=== PATIENT | male | born 1965 | race Caucasian/White ===

== ENCOUNTER 2023-11-22 00:02 | Inpatient (IN) | payer BC, MEDICAID, SELFPAY ==
[2023-11-22] VITALS (14 sets, daily range): BP systolic 94–130; BP diastolic 44–79; PULSE 81–99; RESP 12–18; TEMP 36.5–37.2; O2SAT 94–99; BMI 34.9
[2023-11-22] MEDS: sodium chloride 0.9% 1,000 ML 999 ML IV (00:15)
[2023-11-22 00:25] LABS: Basophils # 0.1 10^3/uL (0.0-0.1); Basophils % 0.4 %; Eosinophils # 0.1 10^3/uL (0.0-0.8); Eosinophils % 0.6 %; Hematocrit 33.3 % (37-53); Lymphocytes # 2.2 10^3/uL (0.8-4.8); Lymphocytes % 19.7 %; Mean Corpuscular HGB Conc 30.9 g/dL (30-55); Mean Corpuscular Hemoglobin 28.5 pg (27-33); Mean Corpuscular Volume 92.2 fl (82-101); Mean Platelet Volume 10.6 fL (7.4-10.4); Monocytes # 0.7 10^3/uL (0.2-0.9); Monocytes % 6.1 %; Neutrophils # 8.18 10^3/uL (1.8-7.7); Neutrophils % 72.8 %; Nucleated Red Blood Cells % 0 %; Platelet Count 181 10^3/cmm (157-399); Red Blood Count 3.61 10^6/uL (3.85-5.65); Red Cell Distribution Width 12.9 % (12.1-15.1); White Blood Count 11.23 10^3/uL (3.29-11.43)
[2023-11-22 00:36] LABS: INR 1.08 (0.8-1.2)
[2023-11-22 00:37] LABS: Partial Thromboplastin Time 19.1 SECONDS (23.9-36.7)
--- NOTE | 2023-11-22 00:38 | CTR_ITS ---
PROCEDURE INFORMATION: Exam: CTA Chest With Contrast Exam date and time: 11/22/2023 12:41 AM Age: 58 years old Clinical indication: Nausea and vomiting; Abdominal pain; Generalized; Shortness of breath; Other: N/a; Prior surgery; Surgery date: 6+ months; Surgery type: Appy; Patient HX: SOB with tachycardia. Abd pain with coffee ground emesis and tarry stool. ; Additional info: Chest discomfort, tachycardia, black stool TECHNIQUE: Imaging protocol: Computed tomographic angiography of the chest with contrast. Exam focused on the arteries. 3D rendering (Not supervised by radiologist): MIP and/or 3D reconstructed images were created by the technologist. Radiation optimization: All CT scans at this facility use at least one of these dose optimization techniques: automated exposure control; mA and/or kV adjustment per patient size (includes targeted exams where dose is matched to clinical indication); or iterative reconstruction. Contrast material: OMNI 350; Contrast volume: 162 ml; Contrast route: INTRAVENOUS (IV); COMPARISON: No relevant prior studies available. RADIATION DOSE METRICS: Total DLP (mGy-cm): 1948.42 FINDINGS: Pulmonary arteries: No filling defects in the pulmonary arteries to suggest pulmonary emboli. Aorta: There is ectasia (mild dilatation) of the ascending thoracic aorta, measuring 4 cm in transaxial diameter at the level of the pulmonary artery. Lungs: No consolidation. There is a single pleural based 2.1 x 1 cm pneumatocele in the left lower lobe. Pleural spaces: No pleural effusion or pneumothorax.. Heart: The heart is normal in size. There are no pericardial fluid collections. Lymph nodes: No enlarged mediastinal or hilar lymph nodes are seen. Bones/joints: No acute fracture.There is segmental ossification of the anterior longitudinal ligament consistent with benign diffuse idiopathic skeletal hyperostosis (DISH). Soft tissues: Unremarkable. PROCEDURE INFORMATION: Exam: CT Abdomen And Pelvis With Contrast Exam date and time: 11/22/2023 12:41 AM Age: 58 years old Clinical indication: Nausea and vomiting; Abdominal pain; Generalized; Shortness of breath; Other: N/a; Prior surgery; Surgery date: 6+ months; Surgery type: Appy; Patient HX: SOB with tachycardia. Abd pain with coffee ground emesis and tarry stool. ; Additional info: Chest discomfort, tachycardia, black stool TECHNIQUE: Imaging protocol: Computed tomography of the abdomen and pelvis with contrast. Radiation optimization: All CT scans at this facility use at least one of these dose optimization techniques: automated exposure control; mA and/or kV adjustment per patient size (includes targeted exams where dose is matched to clinical indication); or iterative reconstruction. Contrast material: OMNI 350; Contrast volume: 162 ml; Contrast route: INTRAVENOUS (IV); COMPARISON: No relevant prior studies available. RADIATION DOSE METRICS: Total DLP (mGy-cm): 1948.42 FINDINGS: Lungs: No consolidation in the visualized lung bases. Liver: No hepatomegaly. There are no enhancing liver masses. Gallbladder and biliary ducts: No calcified stones. No ductal dilation. Pancreas: Normal in size and homogeneous enhancement. No ductal dilation. Spleen: Normal. No splenomegaly. Adrenal glands: Normal. No mass. Kidneys and ureters: There is no hydronephrosis. No renal or obstructing ureteral calculi. Stomach and bowel: The stomach is moderately distended with an air-fluid level. There is wall thickening of the gastric antrum and duodenal bulb as seen in gastritis or peptic ulcer disease (axial series 6, images 25- 35; coronal series 18, images 46-58). Wall thickening of multiple bowel loops consistent with infectious, inflammatory or ischemic enteritis coronal series 18, image 44; axial series 6, image 54). Appendix: Prior appendectomy. Intraperitoneal space: No free air. No significant fluid collection. Vasculature: There is mild atherosclerotic calcification of the abdominal aorta and its branches without aneurysm.The celiac trunk, SMA and CLAYTON are widely patent. Lymph nodes: No enlarged retroperitoneal or mesenteric lymph nodes. Urinary bladder: The bladder shows a normal contour and is free of calcific opacities. Reproductive: Unremarkable as visualized. Bones/joints: No acute fracture. Soft tissues: Normal. CT/CT angio chest w abd pel w con IMPRESSION: 1. No evidence of pulmonary embolus. 2. Ectasia of ascending thoracic aorta measuring 4 cm. 3. No acute cardiopulmonary findings. IMPRESSION: 1. Wall thickening of the gastric antrum and duodenal bulb as seen in gastritis or peptic ulcer disease. 2. Wall thickening of multiple bowel loops consistent with infectious, inflammatory or ischemic enteritis coronal series 18, image 44; axial series 6, image 54). Underdistension may present a similar picture.
[2023-11-22 00:45] LABS: Alanine Aminotransferase 15 U/L (0-41); Albumin Level 3.6 g/dL (3.5-5.2); Alkaline Phosphatase 70 U/L (40-130); Aspartate Amino Transferase 14 U/L (0-40); Blood Urea Nitrogen 45 mg/dL (8-23); Calcium 8.2 mg/dL (8.5-10.5); Carbon Dioxide 26 mmol/L (22-29); Chloride 105 mmol/L (98-107); Creatinine Clr Calc Pharmacy 102.1857; Globulin 2.3 g/dL (1.3-4.6); Glomerular Filtration Rate 86.1 mL/min (90-130); Glucose 152 mg/dL (65-115); Lipase 27 U/L (13-60); Osmolality Calculated 307 mOsm/kg (285-295); Sodium 141 mmol/L (136-145); Total Bilirubin 0.2 mg/dL (0.15-1.2); Total Protein 5.9 g/dL (6.6-8.7)
[2023-11-22] MEDS: iohexol 350 mg/mL 500 mL Btl (per mL) IV ×2 (00:45→00:58)
--- NOTE | 2023-11-22 00:59 | ED_ITS ---
HPI - GI Bleed 2 General: Chief complaint: GI Bleed Stated complaint: ABD PAIN Time Seen by Provider: 11/22/23 00:05 History of Present Illness: 58-year-old male patient with a history of SVT recently diagnosed back in July. He is on multiple cardiology testing done as an outpatient at [facility] in [place]. He was placed on metoprolol to control his heart rate. He is been working out frequently. Yesterday while working out, he began to feel some palpitations. His heart rate was high. He stopped working out and rested all day with some improvement, although his heart rate significantly elevated with getting up to walk even across the home. He became short of breath with this as well in terms of symptoms. Last evening, he began to get sick. He had a loose, black bowel movement. During this episode, he became diaphoretic, nauseated, and had a near syncopal episode at the home. called the ambulance. He has since vomited some black fluid as well. Related Data Allergies Allergy/AdvReac Type Severity Reaction Status Date / Time No Known Allergies Allergy Verified 11/22/23 00:13 Physical Exam 2 Const: COMMON NORMALS: no acute distress GENERAL APPEARANCE: cooperative and ill appearing (Mildly); not frail appearing HENMT: COMMON NORMALS: normocephalic, atraumatic and Normal external nose present HEAD & SCALP: normocephalic and atraumatic FACE & SINUS: normal facial exam and face symmetric NOSE: Normal external nose present Eye: COMMON NORMALS: Equal, round and reactive pupils present and EOMs intact bilaterally PUPIL: Yes Equal, round and reactive pupils present Neck/C-Spine: GENERAL: Yes trachea midline Chest: CHEST: Yes Symmetrical chest wall rise Resp: COMMON NORMALS: normal respiratory effort, No retractions, No use of accessory muscles and clear to auscultation bilaterally AUSCULTATION: clear to auscultation bilaterally Cardio: COMMON NORMALS: regular rate and regular rhythm RATE: regular rate and tachycardic RHYTHM: regular rhythm GI: COMMON NORMALS: Soft to palpation INSPECTION: Yes abdominal distension (Mild) PALPATION: Yes Soft to palpation and No Tenderness to palpation present (GI) Extremity: COMMON NORMALS: no pedal edema Neuro: DAR COMA SCALE: document GCS findings Dar coma scale eye opening: Spontaneous Pierson coma scale verbal response: Orientated Pierson coma scale motor response: Obey commands Pierson coma scale total score: 15 S ENSORY EXAM: Yes extremities (intact) Psych: COMMON NORMALS: speech normal SPEECH: Yes normal speech Skin: COMMON NORMALS: no rashes or lesions noted GENERAL SKIN EXAM: no rashes or lesions noted Course 2 Vital Signs: Vital signs: Vital Signs Temperature 97.7 F 11/22/23 00:03 Pulse Rate 99 11/22/23 01:56 Respiratory Rate 15 11/22/23 01:56 Blood Pressure 101/64 11/22/23 01:56 Pulse Oximetry 95 11/22/23 01:56 Oxygen Delivery Me thod Room Air 11/22/23 01:56 MDM - GI Bleed Medical Decision Making 58-year-old gentleman with black emesis and diarrhea, and tachycardia earlier in the day. He still mildly tachycardic. Saturations are good. Hemoglobin is 10.3. No prior hemoglobins to compare. His BUN is 45 with a normal creatinine. Other laboratory is not terribly remarkable. His lipase is 27. Urinalysis is negative. CT of the chest shows no pulmonary embolus. There is no acute calvarial pulmonary findings. However, CT of the belly shows gastric antrum and duodenal bulb thickening consistent with potential peptic ulcer disease. There is also wall thickening of multiple small bowel loops that could be infectious or inflammatory. Spoke with the hospitalist. Concern is over a GI bleed, upper given BUN findings and CT findings, and a tachycardic patient with no history of anemia and a hemoglobin of 10.3. Suggest surgical consultation. The patient is given 80 mg of IV Protonix here. He still nauseated. Administering Zofran as well. He will be admitted. Spoke with surgery. They are willing to consult on the patient this morning. Lab Data 11/22/23 00:15 11/22/23 00:15 Radiology Impressions Chest/Abdomen/Pelvis CT 11/22/23 00:38 IMPRESSION: 1. No evidence of pulmonary embolus. 2. Ectasia of ascending thoracic aorta measuring 4 cm. 3. No acute cardiopulmonary findings. IMPRESSION: 1. Wall thickening of the gastric antrum and duodenal bulb as seen in gastritis or peptic ulcer disease. 2. Wall thickening of multiple bowel loops consistent with infectious, inflammatory or ischemic enteritis coronal series 18, image 44; axial series 6, image 54). Underdistension may present a similar picture. Laboratory Results WBC 11.23 10^3/uL (3.29-11.43) 11/22/23 00:15 RBC 3.61 10^6/uL (3.85-5.65) L 11/22/23 00:15 Hgb 10.30 g/dL (11.27-16.99) L 11/22/23 00:15 Hct 33.3 % (37-53) L 11/22/23 00:15 MCV 92.2 fl (82-101) 11/22/23 00:15 MCH 28.5 pg (27-33) 11/22/23 00:15 MCHC 30.9 g/dL (30-55) 11/22/23 00:15 RDW 12.9 % (12.1-15.1) 11/22/23 00:15 Plt Count 181 10^3/cmm (157-399) 11/22/23 00:15 MPV 10.6 fL (7.4-10.4) H 11/22/23 00:15 Neut % (Auto) 72.8 % 11/22/23 00:15 Lymph % (Auto) 19.7 % 11/22/23 00:15 [place] % (Auto) 6.1 % 11/22/23 00:15 Eos % (Auto) 0.6 % 11/22/23 00:15 Baso % (Auto) 0.4 % 11/22/23 00:15 Neut # (Auto) 8.18 10^3/uL (1.8-7.7) H 11/22/23 00:15 Lymph # (Auto) 2.2 10^3/uL (0.8-4.8) 11/22/23 00:15 [place] # (Auto) 0.7 10^3/uL (0.2-0.9) 11/22/23 00:15 Eos # (Auto) 0.1 10^3/uL (0.0-0.8) 11/22/23 00:15 Baso # (Auto) 0.1 10^3/uL (0.0-0.1) 11/22/23 00:15 Nucleated RBC % (auto) 0 % 11/22/23 00:15 Nucleated RBCs # 0.0 /100WBC 11/22/23 00:15 PT 14.40 SECONDS (12.1-14.9) 11/22/23 00:15 INR 1.08 (0.8-1.2) 11/22/23 00:15 APTT 19.1 SECONDS (23.9-36.7) L 11/22/23 00:15 D-Dimer 2.45 ug/mLFEU (0-0.59) H 11/22/23 00:15 Sodium 141 mmol/L (136-145) 11/22/23 00:15 Potassium 4.0 mmol/L (3.5-5.1) 11/22/23 00:15 Chloride 105 mmol/L (98-107) 11/22/23 00:15 Carbon Dioxide 26 mmol/L (22-29) 11/22/23 00:15 Anion Gap 14.0 (5-19) 11/22/23 00:15 BUN 45 mg/dL (8-23) H 11/22/23 00:15 Creatinine 0.9 mg/dL (0.7-1.2) 11/22/23 00:15 GFR Calculation 86.1 mL/min (90-130) L 11/22/23 00:15 Glucose 152 mg/dL (65-115) H 11/22/23 00:15 Calculated Osmolality 307 mOsm/kg (285-295) H 11/22/23 00:15 Lactic Acid 2.0 mmol/L (0.5-2.2) 11/22/23 00:34 Calcium 8.2 mg/dL (8.5-10.5) L 11/22/23 00:15 Total Bilirubin 0.2 mg/dL (0.15-1.2) 11/22/23 00:15 AST 14 U/L (0-40) 11/22/23 00:15 ALT 15 U/L (0-41) 11/22/23 00:15 Alkaline Phosphatase 70 U/L (40-130) 11/22/23 00:15 Troponin T Baseline < 6 ng/L (0-15) 11/22/23 00:15 Troponin T 120 Minute 6.00 ng/L (0-15) 11/22/23 02:22 Delta Troponin T 0.05584 ABS# (0-10) 11/22/23 02:22 C-Reactive Protein 3.0 mg/L (0.0-4.9) 11/22/23 00:15 Total Protein 5.9 g/dL (6.6-8.7) L 11/22/23 00:15 Albumin 3.6 g/dL (3.5-5.2) 11/22/23 00:15 Globulin 2.3 g/dL (1.3-4.6) 11/22/23 00:15 Lipase 27 U/L (13-60) 11/22/23 00:15 Urine Color Yellow (Yellow) 11/22/23 02:30 Urine Appearance Clear (CLEAR) 11/22/23 02:30 Urine pH 5.5 (5-7) 11/22/23 02:30 Ur Specific [place] 1.069 (1.005-1.030) H 11/22/23 02:30 Urine Protein Negative (Negative) 11/22/23 02:30 Urine Glucose (UA) Negative (Normal) 11/22/23 02:30 Urine Ketones 1+ (Negative) H 11/22/23 02:30 Urine Blood Negative (Negative) 11/22/23 02:30 Urine Nitrate Negative (Negative) 11/22/23 02:30 Urine Bilirubin Negative (Negative) 11/22/23 02:30 Urine Urobilinogen 1.0 mg/dL (Negative) 11/22/23 02:30 Ur Leukocyte Esterase Negative (Negative) 11/22/23 02:30 Urine RBC 0-2 /hpf (0-2) 11/22/23 02:30 Urine WBC 0-5 /hpf (0-5) 11/22/23 02:30 Ur Squamous Epith Cells 0-5 /hpf (0-5) 11/22/23 02:30 Amorphous Sediment Not Reportable 11/22/23 02:30 Urine Bacteria None seen /hpf (NONE) 11/22/23 02:30 Hyaline Casts 0-4 /lpf H 11/22/23 02:30 All radiology interpretation(s) finalized by discharge Discharge Plan Discharge Patient Disposition: Admitted As Inpatient Clinical Impression: Upper gastrointestinal hemorrhage Condition: Fair Coding Level of Care Code ED Obstetrics Gyn Physician for Taiwo Cooper
[2023-11-22 01:15] LABS: D Dimer 2.45 ug/mLFEU (0-0.59)
[2023-11-22 01:32] LABS: Troponin(5th) Baseline < 6 ng/L (0-15)
--- NOTE | 2023-11-22 02:18 | ECG_ITS ---
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 Measurements Intervals Susan Rate: 96 P: 57 NH: 139 QRS: -44 QRSD: 113 T: 68 QT: 337 QTc: 426 Interpretive Statements SINUS RHYTHM LEFT AXIS DEVIATION [QRS AXIS < -30] LATERAL MYOCARDIAL INFARCTION AGE INDETETMINATE No previous ECG available for comparison Electronically Signed On 11-22-2023 14:07:42 CDT by Luis Daniel Dickson M.D. [email or web address]
[2023-11-22 02:37] LABS: Bilirubin Urine Negative (Negative); Blood Urine Negative (Negative); Glucose Urine UA Negative (Normal); Ketones Urine 1+ (Negative); Leukocyte Esterase Urine Negative (Negative); Nitrate Urine Negative (Negative); Protein Urine Negative (Negative); Urine Appearance Clear (CLEAR); Urine Color Yellow (Yellow); pH Urine 5.5 (5-7)
[2023-11-22 02:42] LABS: Add Urine Microscopic? YES; Bacteria Urine None Seen /hpf; Hyaline Casts Urine 0-4 /lpf; RBC Urine 0-2 /hpf (0-2); Squamous Epithelial Cell Urine 0-5 /hpf (0-5); WBC Urine 0-5 /hpf (0-5)
[2023-11-22 02:42] LABS: Troponin 5 2HR Delta 0.00001 ABS# (0-10)
[2023-11-22 02:43] LABS: Specific Gravity, Urine 1.069 (1.005-1.030)
[2023-11-22] MEDS: pantoprazole 40 mg SDV 80 MG IVP (03:47)
[2023-11-22] MEDS: ondansetron 2 mg/ML SDV 2 mL 4 MG IVP (03:55)
--- NOTE | 2023-11-22 05:46 | P.HP_ITS ---
Providers/Chief Complaint 2 Admitting Physician: Robin Her Chief Complaint: ABD PAIN History of Present Illness Pleasant 58-year-old gentleman with history of SVT diagnosed in July at [facility], with subsequent workup with stress test and echocardiogram which were unremarkable, apart from mild thickening of aortic valve on echo. He is very active and exercise a lot, he lifts weights 3 times a week, and in between he is on a rowing machine for couple hours at a time. Yesterday around 11 he was on the rowing machine, but started getting tired more than usual and having tachycardia. When he stopped to rest tachycardia would improve but would return anytime we will try to get up and get around. As he was getting more fatigued, by the evening, he decided to go lie down. He felt he had to go to the bathroom, and when he did had a copious black tarry stool, subsequently another 1 and vomiting dark/coffee-ground contents. He passed out in the bathroom according to his called EMS. When he was feeling unwell and measure his blood pressure he reports his blood pressure was in the 80s. He has not had any abdominal pain through any of this, but for some months has had some mild sensation in the epigastrium of some gas which had intensified over the last 1 or 2 weeks. He reports that he has never seen any melena in his stool or red blood stool. But he does state that he has had anemia which has been persisting for a while. In ER his initial blood pressure soft 99/63, hemoglobin 10.3, platelets 181, no leukocytosis, afebrile. D-dimer 2.45. INR 1.08. BUN 45, creatinine 0.9. Lactic acid 2. Glucose 152. Troponin unremarkable at baseline and 2 hours. CRP 3. Lipase 27. UA unremarkable. CT chest abdomen pelvis with contrast with no evidence of PE, with ectasia of ascending thoracic aorta measuring 4 cm. No acute cardiopulmonary findings. In the abdomen noted wall thickening of gastric antrum and duodenal bulb as seen in gastritis or peptic ulcer disease. Also wall thickening of multiple bowel loops consistent with infectious, inflammatory or ischemic enteritis, underdistention may present to similar picture. SMA and CLAYTON noted widely patent. He denies being diagnosed with atrial flutter or fibrillation. Review of Systems 2 Const: Denies: fever(s) ENMT: Denies: throat pain Card: Denies: chest pain, edema, pre-syncope or dyspnea on exertion Resp: Denies: dyspnea, productive cough, change in phlegm color or hemoptysis GI: Reports: coffee ground emesis and melena; Denies: abdominal pain or constipation : Denies: flank pain, difficulty urinating, urinary frequency or hematuria Musc: Denies: back pain, joint swelling or joint redness Skin/Breast: Denies: rash Neuro: Denies: headache(s) or confusion Medications/Allergies Allergies Allergy/AdvReac Type Severity Reaction Status Date / Time No Known Allergies Allergy Verified 11/22/23 00:13 PFSH Acute 2 PFSH: Medical History (Updated 11/22/23 @ 06:03 by Robin Her MD) SVT (supraventricular tachycardia) Social History (Updated 11/22/23 @ 05:58 by Robin Her MD) Smoking and tobacco/nicotine status: never used tobacco/nicotine Alcohol intake: never Substance/Drug Use: never Lives independently: Yes Household members: spouse Marital status: Vitals/I&O/Wt Last Vital Signs Temp 97.7 F 11/22/23 00:03 Pulse 92 11/22/23 04:42 Resp 15 11/22/23 01:56 BP 107/65 11/22/23 04:42 Pulse Ox 95 11/22/23 04:42 O2 Del Method Room Air 11/22/23 01:56 11/21/23 11/21/23 11/22/23 14:59 22:59 06:59 Intake Total 1000 / 1000 Balance 1000 / 1000 Weight last 48 hrs Weight 104.326 kg Physical Exam 2 Const: COMMON NORMALS: patient oriented x3 and alert GENERAL APPEARANCE: c ooperative ORIENTATION/CONSCIOUSNESS: Yes awake HENMT: COMMON NORMALS: oropharynx normal Neck/C-Spine: COMMON NORMALS: no JVD Resp: COMMON NORMALS: normal respiratory effort and clear to auscultation bilaterally AUSCULTATION: clear to auscultation bilaterally Cardio: COMMON NORMALS: no JVD, regular rhythm, S1 normal heart sound present, S2 normal heart sound present and No murmurs present (Cardio) RHYTHM: regular rhythm HEART SOUNDS: S1 normal heart sound present and S2 normal heart sound present GI: COMMON NORMALS: Normal to inspection, nondistended, normoactive bowel sounds present, Soft to palpation and non-tender PALPATION: Yes Soft to palpation Extremity: COMMON NORMALS: no joint enlargement and no pedal edema Neuro: COMMON NORMALS: patient oriented x3 and moves all extremities S ENSORIUM/ORIENTATION: Yes alert Skin: COMMON NORMALS: no rashes or lesions noted GENERAL SKIN EXAM: no rashes or lesions noted Data 11/22/23 00:15 11/22/23 00:15 A&P Assessment and plan (1) Upper gastrointestinal hemorrhage: Acute GI bleeding with large melanotic/tarry stools, hematemesis with coffee- ground/black contents at home, complicated by syncope, hypotensive, reports blood pressure was in the 80s when he was not feeling well. With systemic symptoms, with syncope, hypotension. Suspected severe upper GI bleed. Here with supplement on presentation 99/63, tachycardia 98 while on metoprolol, anemia 10.3, baseline unknown, he does report some degree of chronic anemia. May have had some chronic slow GI blood loss, however, appears now has developed large GI bleeding. Monitor for risk of hemorrhagic shock. Currently also dehydrated with hypovolemia. GI bleeding suspected upper GI related to gastritis, duodenitis, but appears to have thickening of small bowel as well and question may be of possible bowel ischemia, otherwise does not appear to have suspicion for infectious cause, did not have any GI symptoms leading up to the event, no diarrhea, no prior vomiting, no malaise, fever chills, no white count. On questioning he does report that he has been taking [employer] back and body daily for some time, which has 500 mg of aspirin and it. Reviewed vitals, CBC, INR, D-dimer, CMP, CRP, lipase, UA, CT chest abdomen pelvis. CRP normal, lactic acid not elevated. Lipase 27. UA unremarkable. Reviewed ER note, discussed with ER provider. Surgery is being consulted due to upper GI bleeding. Possible bowel ischemic component. SMA and CLAYTON are noted widely patent on CT. 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 His abdomen is currently soft, nondistended, bowel sounds present. He may have had transient global ischemia with rapid blood loss with transient hemorrhagic shock and hypoperfusion of GI tract. He does also take antihypertensives including metoprolol and lisinopril, does not normally measure his blood pressures. He also exercises quite intensively, not sure if this could have contributed to any extent to some global bowel ischemia. Alternatively bowel thickening may be secondary to underdistention. Monitor for symptoms, monitor for possible complications of bowel ischemia including ileus, pseudoobstruction. N.p.o. at current time. IV fluid resuscitation, monitor for risk of fluid overload with IV hydration. IV PPI twice daily. Recheck hemoglobins every 4 hours requested. Pending surgical evaluation. (2) Thickened small bowel: Bowel ischemia versus underdistention. Less likely infectious or inflammatory enteritis. As above. (3) Acute blood loss anemia: As above. (4) D-dimer, elevated: Suspect secondary to GI hemorrhage. Repeat. Plan History of SVT: Monitor on telemetry. Has been controlled with metoprolol. Prior workup with stress testing, echocardiogram mostly unremarkable. Mild thickening of aortic valve. Attestations 2 Medical Necessity Statement*: Admission of over 2 midnights anticipated for assessment management of acute upper GI bleed, complicated by syncope, hypotension, suspected bowel ischemia, with acute blood loss anemia and gentleman with history of SVT. Diagnoses Upper gastrointestinal hemorrhage K92.2 Thickened small bowel K63.9 Acute blood loss anemia D62 D-dimer, elevated R79.89
--- NOTE | 2023-11-22 06:37 | ECG_ITS ---
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 Measurements Intervals [place] Rate: 84 P: 73 ND: 140 QRS: -32 QRSD: 118 T: 73 QT: 354 QTc: 418 Interpretive Statements SINUS RHYTHM LEFT AXIS DEVIATION [QRS AXIS < -30] LATERAL MYOCARDIAL INFARCTION AGE INDETERMINATE Compared to ECG 11/22/2023 02:18:29 No significant changes Electronically Signed On 11-22-2023 14:13:59 CDT by Luis Daniel Dickson M.D. [email or web address]
[2023-11-22 06:52] LABS: Troponin 5 6HR Delta 0.00001 ng/L (0-12)
[2023-11-22] MEDS: lactated ringers 1,000 ML 100 ML IV ×2 (06:55→21:31)
--- NOTE | 2023-11-22 08:09 | P.CONIM_ITS ---
Providers/Reason For Consult 2 Consulting Physician/Specialty*: General Surgery Reason for Consult*: Upper GI bleeding Attending Physician: Edgar Lawson MD History of Present Illness History of Present Illness Sanjay Haskins is a 58 year old male who presented to the hospital with active upper GI bleeding. Patient was exercising on a rowing machine when he fell his heart rate suddenly go up, he has history of SVT so he thought the risk was the cause he went to rest and fell they were urged to go to the restroom where he had a very large melanotic stool. Following that he had a coffee-ground emesis. He then presented to the hospital, upon presentation very minimal abdominal tenderness hemoglobin was above 10 and tachycardia resolved with hydration. A CT scan was done showed evidence of thickening of the antrum and the duodenal bulb concerning for peptic ulcer disease versus gastritis. There is also thickening of the small bowel. I was consulted for these findings. Of note patient has been taking 500 mg of aspirin 2-3 times a day over the last week or so. Review of Systems 2 General: Reports: 10 or more systems reviewed and unremarkable except in HPI and below Medications/Allergies Allergies Allergy/AdvReac Type Severity Reaction Status Date / Time No Known Allergies Allergy Verified 11/22/23 00:13 Current Medications Generic Name Dose Route Start Last Admin Trade Name Freq PRN Reason Stop Dose Admin Lactated Ringer's 1,000 mls @ 100 mls/hr 11/22/23 06:00 11/22/23 06:55 Lactated Ringers IV 100 mls/hr .Q10H BING Administration PFSH Acute 2 PFSH: Medical History (Updated 11/22/23 @ 06:03 by Robin Her MD) SVT (supraventricular tachycardia) Social History (Updated 11/22/23 @ 05:58 by Robin Her MD) Smoking and tobacco/nicotine status: never used tobacco/nicotine Alcohol intake: never Substance/Drug Use: never Lives independently: Yes Household members: spouse Marital status: Vitals/I&O/Wt Last Vital Signs Temp 98.3 F 11/22/23 07:40 Pulse 87 11/22/23 07:50 Resp 18 11/22/23 07:40 BP 114/74 11/22/23 07:40 Pulse Ox 98 11/22/23 07:40 O2 Del Method Room Air 11/22/23 07:40 11/21/23 11/22/23 11/22/23 22:59 06:59 14:59 Intake Total 1000 / 1000 Balance 1000 / 1000 Weight last 48 hrs Weight 230 lb Weight 230 lb Physical Exam 2 Narrative: General : Patient is well developed , no acute distress, oriented x3 Head : Normal cephalic, a-traumatic. Nose : Mucous membranes are without erythema. Lungs : Equal chest rise bilaterally, no use of accessory muscles, trachea is midline. CV : Rate and rhythm are normal. Abdomen : Soft, ND, NT, no g/r/m Extremities : No edema. Upper extremities are normal bilaterally. Back : non-tender to palpation, no CVA tenderness. Data 11/22/23 00:15 11/22/23 00:15 A&P Assessment and plan (1) Upper gastrointestinal hemorrhage: (2) Acute blood loss anemia: Plan After complete history, physical examination and review of all available clinical data the following is my assessment. Patient presenting with acute GI bleeding in the setting of recent NSAID consumption. This raises a concern of possible active peptic ulcer disease. Have decided to offer the patient upper endoscopy with possible bleeding control, we discussed all recent benefits including the risks of injury to soft tissue of the mouth and pharynx risk of perforation of the esophagus stomach or duodenum risk of recurrent bleeding, risks of significant bleeding that cannot be controlled with endoscopy measures requiring transfer to higher level of care. Patient shows understanding agrees with the plan. Will proceed with endoscopy this afternoon after patient receives resuscitation and to allow time for the stomach to completely empty as if there is retained blood clots in the stomach this will make endoscopic control likely unsuccessful. In the interim we will recommend continue IV fluids, continue high-dose PPI and avoid NSAIDs. Coding Level of Care Code 47851 Diagnoses Upper gastrointestinal hemorrhage K92.2 Acute blood loss anemia D62
--- NOTE | 2023-11-22 08:46 | W.PM.EVENTAC ---
Event Note Event Note: Patient interviewed, history and physical reviewed, plan reviewed. Endoscopy planned this morning. He is certainly feeling better than on admission. He has not passed any more melanotic stool. Await endoscopy planned this afternoon. Continue Protonix.
[2023-11-22] MEDS: pantoprazole 40 mg SDV IVP ×2 (09:41→21:34)
[2023-11-22] MEDS: sodium chloride 0.9% 1,000 ML 30 ML IV (14:06)
--- NOTE | 2023-11-22 14:23 | P.ANESASSM_ITS ---
Pre-Anesthetic Assessment Height/Weight: Height 1.73 m Weight 104.326 kg Temp Pulse Resp BP Pulse Ox O2 Del Method 98.9 F 91 18 111/76 97 Room Air 11/22/23 14:03 11/22/23 14:03 11/22/23 14:03 11/22/23 14:03 11/22/23 14:03 11/22/23 14:03 Preop Diagnosis: GI bleed Operation Date: 11/22/23 14:30 Proposed Procedures p EGD(Not Applicable) - Benoit Sommers MD Was Beta Ester taken within 24 hours: Yes Was Clonidine taken within 24 hours: N/A Last intake: Intake Last Liquid Date 11/21/23 Last Liquid Time 21:00 Last Solid Date 11/21/23 Last Solid Time 18:00 Social No alcohol and No tobacco Exam alert, oriented x 3, clear to auscultation bilaterally and regular rate & rhythm Airway Submandibular: within normal limits Cervical ROM: within normal limits Mallampati: Class III Dentition: full History/ROS No significant history except as noted and No significant complaints Pulmonary Shortness of Breath CV/HEM Hypertension None reported Hepatic None reported GI None reported Metabolic None reported Musc/skel None reported Neuropsych Syncope Was aggressive when he woke up during prior carpal tunnel surgery Anesthetic Plan ASA status: 2 Anesthesia: Anesthesia Evaluation and MAC Risk of > 500 ml blood loss (7ml/kg in children): No Medications/Allergies Home Medications Medication Instructions Recorded Confirmed Last Taken Type Creatine Monohydrate Tab 5 g PO DAILY 11/22/23 11/22/23 11/20/23 History amitriptyline 25 mg tablet 37.5 mg PO .QHS 11/22/23 11/22/23 11/20/23 History atorvastatin 10 mg tablet 10 mg PO QPM 11/22/23 11/22/23 11/20/23 History lisinopril 20 mg tablet 10 mg PO DAILY 11/22/23 11/22/23 11/20/23 History metoprolol succinate 25 mg 12.5 mg PO DAILY 11/22/23 11/22/23 11/20/23 History tablet,extended release 24 hr Allergies Allergy/AdvReac Type Severity Reaction Status Date / Time No Known Allergies Allergy Verified 11/22/23 00:13 Current Medications Generic Name Dose Route Start Last Admin Trade Name Freq PRN Reason Stop Dose Admin Lactated Ringer's 1,000 mls @ 100 mls/hr 11/22/23 06:00 11/22/23 06:55 Lactated Ringers IV 100 mls/hr .Q10H BING Administration Sodium Chloride 1,000 mls @ 30 mls/hr 11/22/23 14:00 11/22/23 14:06 Sodium Chloride 0.9% IV 11/23/23 13:59 30 mls/hr .Q24H BING Administration Pantoprazole Sodium 40 mg 11/22/23 10:00 11/22/23 09:41 Pantoprazole 40 Mg Sdv IVP 40 mg Q12H BING Administration PFSH Anesthesia Medical History (Updated 11/22/23 @ 06:03 by Robin Her MD) SVT (supraventricular tachycardia) Social History (Updated 11/22/23 @ 05:58 by Robin Her MD) Smoking and tobacco/nicotine status: never used tobacco/nicotine Alcohol intake: never Substance/Drug Use: never Lives independently: Yes Household members: spouse Marital status: Data Anesthesia 11/22/23 13:20 11/22/23 00:15 Short CBC 11/22/23 11/22/23 11/22/23 Range/Units 00:15 08:49 13:20 WBC 11.23 (3.29-11.43) 10^3/uL Hgb 10.30 L 9.50 L 9.00 L (11.27-16.99) g/dL Hct 33.3 L (37-53) % MCV 92.2 (82-101) fl Plt Count 181 (157-399) 10^3/cmm Neut % (Auto) 72.8 % Neut # (Auto) 8.18 H (1.8-7.7) 10^3/uL BMP 11/22/23 00:15 Sodium 141 Potassium 4.0 Chloride 105 Carbon Dioxide 26 BUN 45 H Creatinine 0.9 Glucose 152 H Calcium 8.2 L Cardiac Enzymes 11/22/23 11/22/23 11/22/23 Range/Units 00:15 02:22 06:16 Troponin T Baseline < 6 (0-15) ng/L Troponin T 120 Minute 6.00 (0-15) ng/L Delta Troponin T 0.91992 (0-10) ABS# Troponin T Hi Sens 6Hr 6.00 (0-15) ng/L Troponin T Hi Sens 6Hr Delta 0.71872 (0-12) ng/L Liver Function 11/22/23 Range/Units 00:15 Total Bilirubin 0.2 (0.15-1.2) mg/dL AST 14 (0-40) U/L ALT 15 (0-41) U/L Alkaline Phosphatase 70 (40-130) U/L Albumin 3.6 (3.5-5.2) g/dL Urine 11/22/23 Range/Units 02:30 Urine Color Yellow (Yellow) Urine Appearance Clear (CLEAR) Urine pH 5.5 (5-7) Ur Specific [place] 1.069 H (1.005-1.030) Urine Protein Negative (Negative) Urine Glucose (UA) Negative (Normal) Urine Ketones 1+ H (Negative) Urine Nitrate Negative (Negative) Urine Bilirubin Negative (Negative) Ur Leukocyte Esterase Negative (Negative) Urine RBC 0-2 (0-2) /hpf Urine WBC 0-5 (0-5) /hpf Coags 11/22/23 00:15 PT 14.40 INR 1.08 APTT 19.1 L D-Dimer 2.45 H C-Reactive Protein 3.0 Cardiac Studies: 2 No Data to Display
--- NOTE | 2023-11-22 15:31 | P.MISC_ITS ---
Miscellaneous Note Purpose of Documentation: Update on patient care Note: Upper endoscopy was done, the findings were the following: small hiatal hernia, 2 ulcerations of the antrum with no evidence of active bleeding, there was fibrin at the base. 1 ulceration in the duodenal bulb with a visible vessel, 2 clips were used to control bleeding. -Patient advance to liquid diet today an d tomorrow can be advanced to regular as tolerated -Continue high-dose PPI -Carafate 1 g liquid 4 times a day -In the case of rebleeding patient will require transfer to higher level of care for evaluation by IR or repeat endoscopy by GI specialist
--- NOTE | 2023-11-22 16:00 | ANE.PACU2 ---
Inpatient post-anesthesia follow up: Airway intact: Yes Vital signs: Temperature 97.7 F Pulse Rate 90 Respiratory Rate 18 Blood Pressure 110/67 Pulse Oximetry 98 Oxygen Delivery Me thod [ Room Air Current Rate & Del santos] Oxygen Delivery Me thod Room Air Oxygen Flow Rate 2 Fraction of Inspir ed Oxygen Hydration adequate: Yes Nausea and vomiting: No Pain level: 1 Mental status: Baseline
[2023-11-22] MEDS: atorvastatin 40 mg Tablet PO (17:46)
[2023-11-22] MEDS: sucralfate 1 gm/10 mL Oral Liq UDC PO ×2 (17:46→21:31)
[2023-11-22] MEDS: acetaminophen 325 mg Tablet 650 MG PO (21:33)
[2023-11-22] MEDS: amitriptyline 25 mg Tablet 37.5 MG PO (21:34)
[2023-11-23] VITALS (7 sets, daily range): BP systolic 101–118; BP diastolic 61–69; PULSE 73–85; RESP 17–19; TEMP 36.6–37; O2SAT 96–99
[2023-11-23 06:09] LABS: Basophils % 0.7 %; Eosinophils # 0.1 10^3/uL (0.0-0.8); Eosinophils % 2.3 %; Hematocrit 24.5 % (37-53); Lymphocytes # 2.1 10^3/uL (0.8-4.8); Lymphocytes % 36.6 %; Mean Corpuscular Hemoglobin 28.9 pg (27-33); Mean Corpuscular Volume 93.2 fl (82-101); Mean Platelet Volume 11.3 fL (7.4-10.4); Monocytes # 0.5 10^3/uL (0.2-0.9); Monocytes % 9.3 %; Neutrophils # 2.88 10^3/uL (1.8-7.7); Neutrophils % 50.7 %; Nucleated Red Blood Cells % 0 %; Platelet Count 137 10^3/cmm (157-399); Red Blood Count 2.63 10^6/uL (3.85-5.65); Red Cell Distribution Width 13.2 % (12.1-15.1); White Blood Count 5.68 10^3/uL (3.29-11.43)
[2023-11-23 06:29] LABS: Anion Gap 10.2 (5-19); Blood Urea Nitrogen 15 mg/dL (8-23); Carbon Dioxide 28 mmol/L (22-29); Chloride 106 mmol/L (98-107); Creatinine Clr Calc Pharmacy 135.7302; Glucose 103 mg/dL (65-115); Magnesium 1.9 mg/dL (1.7-2.3); Osmolality Calculated 291 mOsm/kg (285-295); Potassium 4.2 mmol/L (3.5-5.1); Sodium 140 mmol/L (136-145)
[2023-11-23 06:45] LABS: D Dimer 0.47 ug/mLFEU (0-0.59)
[2023-11-23] MEDS: sucralfate 1 gm/10 mL Oral Liq UDC PO ×2 (06:51→11:21)
[2023-11-23] MEDS: lactated ringers 1,000 ML 100 ML IV (06:52)
[2023-11-23] MEDS: acetaminophen 325 mg Tablet 650 MG PO (08:02)
--- NOTE | 2023-11-23 09:19 | P.PN_ITS ---
Subjective 2 Subjective: No bowel movement since admission. Feels like his energy is low, gets tired easily. States he felt a little faint when getting up this morning. Is able to tolerate clear liquids. No nausea or vomiting. Does have a headache, got Tylenol but still present. Medications: Reviewed: Yes Vitals/I&O/Wt Last Vital Signs Temp 98.2 F 11/23/23 07:39 Pulse 73 11/23/23 07:39 Resp 19 H 11/23/23 07:39 BP 118/65 11/23/23 07:39 Pulse Ox 99 11/23/23 07:39 O2 Del Method Room Air 11/23/23 04:00 O2 Flow Rate 2 11/22/23 15:30 11/22/23 11/23/23 11/23/23 22:59 06:59 14:59 Intake Total 1900 / 1900 1175 / 3075 728.333 / 728.333 Balance 1900 / 1900 1175 / 3075 728.333 / 728.333 Weight last 48 hrs Weight 111.175 kg Weight 104.326 kg Weight 104.326 kg Physical Exam 2 Narrative: General Exam no distress Neck is supple Cardiovascular regular rate and rhythm Lungs clear Abdomen soft, nontender Extremities no sinus clubbing edema Data 11/23/23 05:14 11/23/23 05:14 A&P Assessment and plan (1) Upper gastrointestinal hemorrhage: Acute GI bleeding with large melanotic/tarry stools, hematemesis with coffee- ground/black contents at home, complicated by syncope, hypotensive, reports blood pressure was in the 80s when he was not feeling well. He has received a significant amount of IV fluids. Blood pressure, and heart rate are stable. Repeat his hemoglobin around 1030 this morning. It drifted down to 7.6. Some of this may be hemodilutional. Doubt he is currently actively bleeding considering no bowel movement since admit. Avoid all anti-inflammatories Continue Carafate and Protonix Advance diet to full liquid No concerning symptoms for ischemic bowel Appreciate surgical consultation (2) Thickened small bowel: Noted on CT, clinical relevance at this point not apparent. (3) Acute blood loss anemia: As above. Hemoglobin is drifted down to 7.6. Discontinue fluids, encourage p.o., recheck hemoglobin this morning (4) D-dimer, elevated: Suspect secondary to GI hemorrhage. Repeat. Plan History of SVT: Monitor on telemetry. Has been controlled with metoprolol. Prior workup with stress testing, echocardiogram mostly unremarkable. Mild thickening of aortic valve. Restart metoprolol as blood pressure recovers Coding Level of Care Code Acute Code for Chg Fwd Diagnoses Upper gastrointestinal hemorrhage K92.2 Thickened small bowel K63.9 Acute blood loss anemia D62 D-dimer, elevated R79.89
--- NOTE | 2023-11-23 09:46 | PC.CHAP ---
Pastoral Care Encounter/Spiritual Assessment Type of Contact [] Declined sheep farm worker visit [] Patient/Family/Request visit [] Outpatient visit [] Follow-up visit [] Physician referral [] Code/Alert [x] Routine visit [] Staff referral [] Actively dying [] Patient sleeping [] Family support [] [] Out of room [] Palliative care [] [] Receiving care in room [] Pre-surgical visit [] Trauma [] Long length of stay [] ICU visit [] Other: Relational/Emotional Strength [x] Patient feels connected with others/family/visitors/staff [] Distress [] Loneliness/isolation [] Abandonment Spirituality of Patient [x] Person of Flavia [] Attends Zoroastrian of their Flavia [x] Believes in Prayer [] Reads Bible or Baptist materials [] There are Spiritual issues to be addressed Import Manager Interventions [x] Prayer [] Active listening [x Non-anxious presence [x] Spiritual/emotional support [] Crisis/trauma care [] Spiritual counseling [] Bereavement support [] Provided bereavement packet [] Provided Bible/devotional materials [] Provided toy/stuffed animal, coloring book to patient or family member [] Provided Communion [] Anointing/[place] [] Salvation [xx] Completed spiritual assessment [] Other: Impact on Illness or Injury [] Angry [] Fearful [] Anxious [] Often cries [] Exhaustion [] Unable to work [] Unable to attend sabianism [] Unable to walk/stand [] Unable to read [] Unable to drive [] Unable to eat/drink [] Unable to sleep [] Unable to be with family [] Patient intubated [] Other: Summary Time spent with patient 5 min Pastoral Care Encounter/Spiritual Assessment Type of Contact [] Declined sheep farm worker visit [] Patient/Family/Request visit [] Outpatient visit [] Follow-up visit [] Physician referral [] Code/Alert [] Routine visit [] Staff referral [] Actively dying [] Patient sleeping [] Family support [] [] Out of room [] Palliative care [] [] Receiving care in room [] Pre-surgical visit [] Trauma [] Long length of stay [] ICU visit [] Other: Relational/Emotional Strength [] Patient feels connected with others/family/visitors/staff [] Distress [] Loneliness/isolation [] Abandonment Spirituality of Patient [] Person of Flavia [] Attends Zoroastrian of their Flavia [] Believes in Prayer [] Reads Bible or Baptist materials [] There are Spiritual issues to be addressed Import Manager Interventions [] Prayer [] Active listening [] Non-anxious presence [] Spiritual/emotional support [] Crisis/trauma care [] Spiritual counseling [] Bereavement support [] Provided bereavement packet [] Provided Bible/devotional materials [] Provided toy/stuffed animal, coloring book to patient or family member [] Provided Communion [] Anointing/[place] [] Salvation [] Completed spiritual assessment [] Other: Impact on Illness or Injury [] Angry [] Fearful [] Anxious [] Often cries [] Exhaustion [] Unable to work [] Unable to attend sabianism [] Unable to walk/stand [] Unable to read [] Unable to drive [] Unable to eat/drink [] Unable to sleep [] Unable to be with family [] Patient intubated [] Other: Summary Time spent with patient
[2023-11-23 11:06] LABS: Hematocrit 25.1 % (37-53)
[2023-11-23] MEDS: pantoprazole 40 mg SDV IVP (11:21)
--- NOTE | 2023-11-23 11:31 | P.PN_ITS ---
Subjective 2 Subjective: Doing well this morning has tolerated diet, no significant abdominal pain no vomiting or bloody bowel movements since admission. Vitals/I&O/Wt Last Vital Signs Temp 98.2 F 11/23/23 07:39 Pulse 73 11/23/23 07:39 Resp 19 H 11/23/23 07:39 BP 118/65 11/23/23 07:39 Pulse Ox 99 11/23/23 07:39 O2 Del Method Room Air 11/23/23 04:00 O2 Flow Rate 2 11/22/23 15:30 11/22/23 11/23/23 11/23/23 22:59 06:59 14:59 Intake Total 1900 / 1900 1175 / 3075 728.333 / 728.333 Balance 1900 / 1900 1175 / 3075 728.333 / 728.333 Weight last 48 hrs Weight 245 lb 1.6 oz Weight 230 lb Weight 230 lb Physical Exam 2 GI: OTHER: Abdomen soft nontender nondistended. Data 11/23/23 10:30 11/23/23 05:14 A&P Assessment and plan (1) Upper gastrointestinal hemorrhage: Plan Patient is doing okay his vitals have been stable and clinically looks fine, his hemoglobin trended down to 7.6 and after that it uptrend to 7.8 has been stable at that level. At this point is unlikely to be recurrent bleeding I think probably the hemoglobin drop from the initial episode of bleeding as well as some component of hemodilution. Plan is to allow the patient to go home today, he will go home twice a day Protonix and Carafate, he will follow-up with me in 1 week and we will discuss the possibility of repeating endoscopy in 4 weeks to ensure healing of the ulcers. Patient shows understanding and is agreeable with the plan, I talked to him regarding warning signs and the need to return to the ED if additional symptoms. Attestations 2 Medical Necessity Statement*: Per medical team Coding Level of Care Code Acute Code for Chg Fwd Diagnoses Upper gastrointestinal hemorrhage K92.2
--- NOTE | 2023-11-23 12:06 | PM.DCS ---
Discharge Providers Date of Admission: 11/22/23 04:36 Date of Discharge: November 23, 2023 Attending Provider at Admission: Robin Her Attending Provider at Discharge: Edgar Lawson MD Primary Care Provider: Fany Morales NP Diagnoses at Discharge Discharge Diagnosis (1) Upper gastrointestinal hemorrhage: Status: Acute Reason for Visit Reason for Visit: ABD PAIN Hospital Course Hospital Course Sanjay is a 58-year-old white male who presented to the hospital with upper GI bleeding, and acute blood loss anemia. He presented early in the morning on the . Surgery was consulted. He was hydrated, Protonix initiated, and hemoglobin to follow closely. EGD was performed the afternoon of November 22, demonstrating several gastric and 1 duodenal ulcer. A visible vessel was present in one of the ulcerations, and endoclips were placed. He was placed on a clear liquid diet, slowly advanced and monitored for any bleeding. He had no evidence of further vomiting, or stooling to suggest active bleeding. Hemoglobin did drift down with IV fluids, and stabilized at 7.8. He was able to walk around without feeling dizzy, and relatively asymptomatic with mild activity. It is thought he could be discharged home on Protonix, Carafate, CBC in 2 days, follow-up with his primary in 3 to 5 days and follow-up with surgery in 1 week. He was able to ask questions and agreed with plan. He will take no anti-inflammatories, particularly the aspirin product that he had been taking prior to admission. He will reduce his caffeine intake. Physical Exam Narrative: General Exam no distress Neck is supple Cardiovascular regular rate and rhythm Lungs clear Abdomen soft nontender Extremities no sinus clubbing edema Discharge Data Studies Completed and Pending Completed Studies During Hospitalization Category Date Time Status CTA chest CT abdomen pelvis [CT angio chest w abd pel w Cat Scan 11/22/23 00:38 Completed con] Stat Pending at discharge Category Date Time Status Basic Metabolic Panel AM LABS Lab 11/24/23 04:00 Ordered Basic Metabolic Panel AM LABS Lab 11/25/23 04:00 Ordered Complete Blood Count w/Auto AM LABS Lab 11/24/23 04:00 Ordered Complete Blood Count w/Auto AM LABS Lab 11/25/23 04:00 Ordered Pathology: Surgical [PTH] Routine Pth 11/22/23 15:23 Received Radiology Impressions Chest/Abdomen/Pelvis CT 11/22/23 00:38 IMPRESSION: 1. No evidence of pulmonary embolus. 2. Ectasia of ascending thoracic aorta measuring 4 cm. 3. No acute cardiopulmonary findings. IMPRESSION: 1. Wall thickening of the gastric antrum and duodenal bulb as seen in gastritis or peptic ulcer disease. 2. Wall thickening of multiple bowel loops consistent with infectious, inflammatory or ischemic enteritis coronal series 18, image 44; axial series 6, image 54). Underdistension may present a similar picture. Laboratory Results WBC 5.68 10^3/uL (3.29-11.43) 11/23/23 05:14 RBC 2.63 10^6/uL (3.85-5.65) L 11/23/23 05:14 Hgb 7.80 g/dL (11.27-16.99) L 11/23/23 10:30 Hct 25.1 % (37-53) L 11/23/23 10:30 MCV 93.2 fl (82-101) 11/23/23 05:14 MCH 28.9 pg (27-33) 11/23/23 05:14 MCHC 31.0 g/dL (30-55) 11/23/23 05:14 RDW 13.2 % (12.1-15.1) 11/23/23 05:14 Plt Count 137 10^3/cmm (157-399) L 11/23/23 05:14 MPV 11.3 fL (7.4-10.4) H 11/23/23 05:14 Neut % (Auto) 50.7 % 11/23/23 05:14 Lymph % (Auto) 36.6 % 11/23/23 05:14 [place] % (Auto) 9.3 % 11/23/23 05:14 Eos % (Auto) 2.3 % 11/23/23 05:14 Baso % (Auto) 0.7 % 11/23/23 05:14 Neut # (Auto) 2.88 10^3/uL (1.8-7.7) 11/23/23 05:14 Lymph # (Auto) 2.1 10^3/uL (0.8-4.8) 11/23/23 05:14 [place] # (Auto) 0.5 10^3/uL (0.2-0.9) 11/23/23 05:14 Eos # (Auto) 0.1 10^3/uL (0.0-0.8) 11/23/23 05:14 Baso # (Auto) 0.0 10^3/uL (0.0-0.1) 11/23/23 05:14 Nucleated RBC % (auto) 0 % 11/23/23 05:14 Nucleated RBCs # 0.0 /100WBC 11/23/23 05:14 PT 14.40 SECONDS (12.1-14.9) 11/22/23 00:15 INR 1.08 (0.8-1.2) 11/22/23 00:15 APTT 19.1 SECONDS (23.9-36.7) L 11/22/23 00:15 D-Dimer 0.47 ug/mLFEU (0-0.59) 11/23/23 05:46 Sodium 140 mmol/L (136-145) 11/23/23 05:14 Potassium 4.2 mmol/L (3.5-5.1) 11/23/23 05:14 Chloride 106 mmol/L (98-107) 11/23/23 05:14 Carbon Dioxide 28 mmol/L (22-29) 11/23/23 05:14 Anion Gap 10.2 (5-19) 11/23/23 05:14 BUN 15 mg/dL (8-23) 11/23/23 05:14 Creatinine 0.7 mg/dL (0.7-1.2) 11/23/23 05:14 GFR Calculation 115.0 mL/min (90-130) 11/23/23 05:14 Glucose 103 mg/dL (65-115) 11/23/23 05:14 Calculated Osmolality 291 mOsm/kg (285-295) 11/23/23 05:14 Lactic Acid 2.0 mmol/L (0.5-2.2) 11/22/23 00:34 Calcium 8.0 mg/dL (8.5-10.5) L 11/23/23 05:14 Magnesium 1.9 mg/dL (1.7-2.3) 11/23/23 05:14 Total Bilirubin 0.2 mg/dL (0.15-1.2) 11/22/23 00:15 AST 14 U/L (0-40) 11/22/23 00:15 ALT 15 U/L (0-41) 11/22/23 00:15 Alkaline Phosphatase 70 U/L (40-130) 11/22/23 00:15 Troponin T Baseline < 6 ng/L (0-15) 11/22/23 00:15 Troponin T 120 Minute 6.00 ng/L (0-15) 11/22/23 02:22 Delta Troponin T 0.30149 ABS# (0-10) 11/22/23 02:22 Troponin T Hi Sens 6Hr 6.00 ng/L (0-15) 11/22/23 06:16 Troponin T Hi Sens 6Hr Delta 0.90123 ng/L (0-12) 11/22/23 06:16 C-Reactive Protein 3.0 mg/L (0.0-4.9) 11/22/23 00:15 Total Protein 5.9 g/dL (6.6-8.7) L 11/22/23 00:15 Albumin 3.6 g/dL (3.5-5.2) 11/22/23 00:15 Globulin 2.3 g/dL (1.3-4.6) 11/22/23 00:15 Lipase 27 U/L (13-60) 11/22/23 00:15 Urine Color Yellow (Yellow) 11/22/23 02:30 Urine Appearance Clear (CLEAR) 11/22/23 02:30 Urine pH 5.5 (5-7) 11/22/23 02:30 Ur Specific [place] 1.069 (1.005-1.030) H 11/22/23 02:30 Urine Protein Negative (Negative) 11/22/23 02:30 Urine Glucose (UA) Negative (Normal) 11/22/23 02:30 Urine Ketones 1+ (Negative) H 11/22/23 02:30 Urine Blood Negative (Negative) 11/22/23 02:30 Urine Nitrate Negative (Negative) 11/22/23 02:30 Urine Bilirubin Negative (Negative) 11/22/23 02:30 Urine Urobilinogen 1.0 mg/dL (Negative) 11/22/23 02:30 Ur Leukocyte Esterase Negative (Negative) 11/22/23 02:30 Urine RBC 0-2 /hpf (0-2) 11/22/23 02:30 Urine WBC 0-5 /hpf (0-5) 11/22/23 02:30 Ur Squamous Epith Cells 0-5 /hpf (0-5) 11/22/23 02:30 Amorphous Sediment Not Reportable 11/22/23 02:30 Urine Bacteria None seen /hpf (NONE) 11/22/23 02:30 Hyaline Casts 0-4 /lpf H 11/22/23 02:30 Vitals Last Vital Signs Temp 98.2 F 11/23/23 07:39 Pulse 73 11/23/23 07:39 Resp 19 H 11/23/23 07:39 BP 118/65 11/23/23 07:39 Pulse Ox 99 11/23/23 07:39 O2 Del Method Room Air 11/23/23 04:00 O2 Flow Rate 2 11/22/23 15:30 Discharge Plan Discharge Patient Disposition: Home Condition: Stable Prescriptions: New sucralfate 100 mg/mL Suspension 1 g PO AC&BEDTIME Qty: 1200 0RF pantoprazole [Protonix] 40 mg tablet,delayed release (DR/EC) 40 mg PO BID Qty: 60 0RF Continued atorvastatin 10 mg tablet 10 mg PO QPM amitriptyline 25 mg tablet 37.5 mg PO .QHS Creatine Monohydrate Tab 5 g PO DAILY Discontinued lisinopril 20 mg tablet 10 mg PO DAILY metoprolol succinate 25 mg tablet extended release 24 hr 12.5 mg PO DAILY Discharge Orders: Discharge Order (Routine); Ordered 11/23/23 Ordered By: Edgar Lawson Referrals: Benoit Sommers MD [Physician] - 1 week Fany Morales NP [Primary Care Provider] - 4-7 days Discharge Diet: As Directed Discharge Activity: Increase activity as tolerated Patient Instructions: GI Post Discharge Instructions w/ Anesthesia, Opioid Safety Activity Restrictions/Additional Instructions: Soft diet Reduce caffeine No anti-inflammatories including aspirin Follow-up with primary care provider 7 to 10 days, CBC in 2 days Follow-up with surgery in 2 weeks Monitor for any recurrent bleeding, return if this occurs Do not start your metoprolol or lisinopril at this time. Monitor your blood pressures, and your primary care provider will likely restart these on follow-up. Discharge Attestations Time Spent in Discharge Care*: greater than 30 min Quality Metrics Clinical Quality Measures [ No reported AMI, CVA or VTE this stay] Coding Level of Care Code 35228 Total time (in minutes) for Discharge: 33 Diagnoses Upper gastrointestinal hemorrhage K92.2
--- NOTE | 2023-11-23 12:22 | PC.NURSE ---
Discharge Note Patient discharged to home via private vehicle accompanied by . Discharge instructions reviewed with patient and/or packaging sales representative. Mobile pharmacy medications and/or prescriptions provided. Belongings/home medications returned.
== END 2023-11-23 13:53 | disposition home or self-care (01) | DRG 378 ==
LOC: ER 04:28 → MEDSURG 04:38
PROVIDERS: Surgery; Admitting Provider Internal Medicine; Emergency Provider Emergency Medicine; PCP Nurse Practitioner Family; Visit Provider Internal Medicine
PROC: 0DJ08ZZ Inspection of Upper Intestinal Tract, Via Natural or Artificial Opening Endoscopic (ICD-10-PCS; CPT 43235; principal; 2023-11-22 14:30)
DX: K26.0 Acute duodenal ulcer with hemorrhage (principal); D62 Acute posthemorrhagic anemia; I47.10 Supraventricular tachycardia, unspecified; K25.3 Acute gastric ulcer without hemorrhage or perforation; I77.810 Thoracic aortic ectasia; K29.70 Gastritis, unspecified, without bleeding; K44.9 Diaphragmatic hernia without obstruction or gangrene
CPT/HCPCS: 36415; 43239; 71275; 74177; 80048; 80053; 81001; 83605; 83690; 83735; 84484; 85014; 85018; 85025; 85378; 85610; 85730; 86140; 88305; 88342; 93005; 99285; J2405; J2470; J2704; J7030; J7120

== ENCOUNTER 2023-12-21 08:25 | Day surgery (SDC) | payer BC, MEDICAID, SELFPAY ==
[2023-12-21 08:44] VITALS: BP 123/85; PULSE 79; RESP 16; O2SAT 96; BMI 34.7
--- NOTE | 2023-12-21 08:47 | P.HPUD_ITS ---
Surgery/Procedure H&P Update DATE OF PROCEDURE: December 21, 2023 DATE H&P PERFORMED: 12/08/23 H&P UPDATE INFORMATION: I have reviewed H&P completed within last 30 days, I have examined patient prior to procedure, No changes to prior documentation and H&P is in [facility] [place] EMR on date indicated PLANNED PROCEDURE: Operation Date: 12/21/23 09:55 Proposed Procedures p EGD(Not Applicable) - Benoit Sommers MD s Colonoscopy - 04690, 82239, G0121,Z12.11, Z87.19(Not Applicable) - Benoit Sommers MD
[2023-12-21] MEDS: sodium chloride 0.9% 1,000 ML 30 ML IV (09:10)
--- NOTE | 2023-12-21 09:28 | ANES.PREANE2 ---
Pre-Anesthetic Assessment Height/Weight: Height 5 ft 8 in Weight 228 lb Pulse Resp BP Pulse Ox O2 Del Method 79 16 123/85 96 Room Air 12/21/23 08:44 12/21/23 08:44 12/21/23 08:44 12/21/23 08:44 12/21/23 08:44 Preop Diagnosis: Colonoscopy/EGD Operation Date: 12/21/23 09:55 Proposed Procedures p EGD(Not Applicable) - Benoit Sommers MD s Colonoscopy - 13306, 18417, G0121,Z12.11, Z87.19(Not Applicable) - Benoit Sommers MD Was Beta Ester taken within 24 hours: N/A Was Clonidine taken within 24 hours: N/A Last intake: Intake Last Liquid Date 12/20/23 Last Liquid Time 22:00 Last Solid Date 12/19/23 Last Solid Time 20:00 Social No alcohol and No tobacco Exam alert, oriented x 3, clear to auscultation bilaterally and regular rate & rhythm Airway Submandibular: within normal limits Cervical ROM: within normal limits Mallampati: Class II Dentition: full Anesthetic Plan ASA status: 2 Anesthesia: General Other: No prior issues with anesthesia Patient was recently here 3 weeks ago for EGD with concerns of acute anemic blood loss Patient has a history of SVT, was placed on metoprolol but has not taken this for 3 weeks because they told him to stop all his BP meds due to concern of hypotension secondary to bleeding. Preop BP 123/85 EKG sinus rhythm Plan for MAC anesthesia Medications/Allergies Home Medications Medication Instructions Recorded Confirmed Last Taken Type Creatine Monohydrate Tab 5 g PO DAILY 11/22/23 12/15/23 12/18/23 History amitriptyline 25 mg tablet 37.5 mg PO .QHS 11/22/23 12/15/23 12/20/23 History atorvastatin 10 mg tablet 10 mg PO QPM 11/22/23 12/15/23 12/20/23 History pantoprazole 40 mg tablet,delayed 40 mg PO BID #60 tabs 11/23/23 12/15/23 12/20/23 Rx release (Protonix) sucralfate 100 mg/mL oral 1 g (10 mL) PO AC&BEDTIME #1,200 mL 11/23/23 12/15/23 12/20/23 Rx suspension Allergies Allergy/AdvReac Type Severity Reaction Status Date / Time azithromycin Allergy ALGY-Redness Verified 12/15/23 12:43 of Skin Current Medications Generic Name Dose Route Start Last Admin Trade Name Balwinder PRN Reason Stop Dose Admin Sodium Chloride 1,000 mls @ 30 mls/hr 12/21/23 08:30 12/21/23 09:10 Sodium Chloride 0.9% IV 12/22/23 08:29 30 mls/hr .Q24H BING Administration PFS Anesthesia Medical History (Updated 12/14/23 @ 14:40 by Rachael Collins RN) SVT (supraventricular tachycardia) Social History Smoking and tobacco/nicotine status: never used tobacco/nicotine Alcohol intake: never Substance/Drug Use: never Lives independently: Yes Household members: spouse Marital status: Data Anesthesia Cardiac Studies: No Data to Display
[2023-12-21 10:14] VITALS: BP 111/74; PULSE 76; RESP 18; TEMP 36.4; O2SAT 100
[2023-12-21 10:23] VITALS: BP 106/58; PULSE 66; RESP 18; TEMP 36.4; O2SAT 98
--- NOTE | 2023-12-21 10:40 | ANE.PACU2 ---
Inpatient post-anesthesia follow up: Airway intact: Yes Vital signs: Temperature 97.5 F Pulse Rate 66 Respiratory Rate 18 Blood Pressure 106/58 Pulse Oximetry 98 Oxygen Delivery Me thod Room Air Oxygen Flow Rate Fraction of Inspir ed Oxygen Hydration adequate: Yes Nausea and vomiting: No Pain level: 1 Mental status: Baseline
== END 2023-12-21 10:40 | disposition home or self-care (01) ==
PROVIDERS: PCP Nurse Practitioner Family; Visit Provider Surgery
PROC: 0DJ08ZZ Inspection of Upper Intestinal Tract, Via Natural or Artificial Opening Endoscopic (ICD-10-PCS; CPT 43235; principal; 2023-12-21 09:55)
PROC: 0DJD8ZZ Inspection of Lower Intestinal Tract, Via Natural or Artificial Opening Endoscopic (ICD-10-PCS; CPT 45378; 2023-12-21 09:55)
DX: Z12.11 Encounter for screening for malignant neoplasm of colon (principal); K29.50 Unspecified chronic gastritis without bleeding; K64.8 Other hemorrhoids; Z87.19 Personal history of other diseases of the digestive system; Z87.11 Personal history of peptic ulcer disease
CPT/HCPCS: 43239; 45378; 88305; 88342; J2704; J7030

== ENCOUNTER 2023-12-28 13:54 | Oncology outpatient (recurring) (ONCR) | payer BC, MEDICAID, SELFPAY ==
[2023-12-28 14:39] VITALS: BP 109/58; PULSE 66; RESP 16; TEMP 36.8; O2SAT 95
[2023-12-28] MEDS: iron sucrose 200 MG in sodium chloride 0.9% (100 ml) 100 ML 220 MG IV (14:42)
[2023-12-28 15:36] VITALS: BP 116/70; PULSE 60; RESP 16; TEMP 36.6; O2SAT 98
== END 2024-01-08 23:59 | disposition home or self-care (01) ==
LOC: ONCMED 13:54
PROVIDERS: PCP Nurse Practitioner Family; Visit Provider Nurse Practitioner Family
DX: Z79.899 Other long term (current) drug therapy (principal); D50.9 Iron deficiency anemia, unspecified
CPT/HCPCS: 96365; J1756

== ENCOUNTER 2024-03-02 07:57 | Oncology outpatient (recurring) (ONCR) | payer BC, MEDICAID, SELFPAY ==
[2024-03-02] MEDS: iron sucrose 200 MG in sodium chloride 0.9% 50 ML 240 MG IV (08:27)
[2024-03-02 16:42] VITALS: BP 124/78; PULSE 78; RESP 18; TEMP 36.6; O2SAT 98
== END 2024-03-10 23:59 | disposition home or self-care (01) ==
LOC: ONCMED 07:58
PROVIDERS: PCP Nurse Practitioner Family; Visit Provider Nurse Practitioner Family
DX: D50.9 Iron deficiency anemia, unspecified (principal); Z79.899 Other long term (current) drug therapy
CPT/HCPCS: 96365; J1756

== ENCOUNTER 2024-05-23 23:13 | Emergency (ER) | payer BC, MEDICAID, SELFPAY ==
--- NOTE | 2024-05-23 23:18 | ECG_ITS ---
[facility] Test Date: 2024-05-23 Pat Name: Sanjay Haskins Department: Room: Gender: Male Medical Coding Manager: : 1965 Requested By: Dioni Del Toro Order Number: [id number] Adams MD: Carley Taylor M.D. Measurements Intervals [place] Rate: 56 P: 41 SC: 159 QRS: -36 QRSD: 130 T: 52 QT: 401 QTc: 389 Interpretive Statements SINUS BRADYCARDIA LEFT AXIS DEVIATION [QRS AXIS < -30] MINIMAL VOLTAGE CRITERIA FOR LVH, CONSIDER NORMAL VARIANT [MEETS CRITERIA IN ONE OF: R(aVL), S(V1), R(V5), R(V5/V6)+S(V1)] PROBABLE LATERAL MYOCARDIAL INFARCTION , OF INDETERMINATE AGE [35 ms Q WAVE IN I/aVL/V5/V6] Compared to ECG 11/22/2023 06:30:21 Sinus rhythm no longer present Myocardial infarct finding still present Electronically Signed On 05-24-2024 21:27:16 CDT by Carley Taylor M.D. [email or web address]
[2024-05-23 23:20] VITALS: BP 154/83; PULSE 56; RESP 18; TEMP 37.2; O2SAT 98
--- NOTE | 2024-05-24 00:22 | W.ED.ARRPALP ---
HPI - Arrhythmia/Palpitations General: Chief Complaint: Arrhythmia/Palpitations Stated Complaint: Dizzy\BP High\Heart Concerns Time Seen by Provider: 05/23/24 23:29 History of Present Illness: Patient is a well-appearing 59-year-old male seen for lightheadedness. He states that his fit bit wrist monitor alarmed and told him that his heart rate was low in the 40s. At the same time he had mild confusion and lightheadedness. The symptoms lasted for several minutes and resolved spontaneously. At no point in time did he experience chest pain, shortness of breath, chest pressure, nausea, or other worrisome signs of ACS. He has been checked thoroughly by cardiology including a stress echocardiogram with no evidence of coronary disease. He works out 4 times a week and is very healthy. He has noticed with SVT for which he takes metoprolol. He used to be on lisinopril but has been told to stop that because his blood pressure was at goal of 120/70. Additionally, while his lightheadedness was going on, he checked his blood pressure and it got as high as 170 systolic. He presents today confused as to why he would be bradycardic and hypertensive at the same time. He has no other acute complaints. Related Data Home Medications ?Medication ?Instructions ?Recorded ?Confirmed Creatine Monohydrate Tab 5 g PO DAILY 11/22/23 01/12/24 amitriptyline 25 mg tablet 37.5 mg PO .QHS 11/22/23 01/12/24 atorvastatin 10 mg tablet 10 mg PO QPM 11/22/23 01/12/24 Previous Rx's ?Medication ?Instructions ?Recorded pantoprazole 40 mg tablet,delayed 40 mg PO BID #60 tabs 12/21/23 release (Protonix) Allergies Allergy/AdvReac Type Severity Reaction Status Date / Time azithromycin Allergy ALGY-Redness Verified 05/23/24 23:23 of Skin [facility] ED PFSH: Medical History SVT (supraventricular tachycardia) Social History Smoking and tobacco/nicotine status: never used tobacco/nicotine Alcohol intake: never Substance/Drug Use: never Lives independently: Yes Household members: spouse Marital status: Physical Exam Const: COMMON NORMALS: no acute distress, patient oriented x3 and alert HENMT: COMMON NORMALS: normocephalic and atraumatic HEAD & SCALP: normocephalic and atraumatic Eye: COMMON NORMALS: Equal, round and reactive pupils present, EOMs intact bilaterally and no scleral icterus PUPIL: Yes Equal, round and reactive pupils present Resp: COMMON NORMALS: normal respiratory effort and No retractions Cardio: COMMON NORMALS: regular rate, regular rhythm and No murmurs present (Cardio) RATE: regular rate RHYTHM: regular rhythm GI: COMMON NORMALS: Normal to inspection, nondistended, normoactive bowel sounds present, Soft to palpation and non-tender PALPATION: Yes Soft to palpation Neuro: COMMON NORMALS: patient oriented x3 SENSORIUM/ORIENTATION: Yes alert Skin: COMMON NORMALS: no rashes or lesions noted GENERAL SKIN EXAM: no rashes or lesions noted Course Vital Signs: Vital signs: Vital Signs Temperature 98.9 F 05/23/24 23:20 Pulse Rate 53 L 05/24/24 02:54 Respiratory Rate 16 05/24/24 02:54 Blood Pressure 120/71 05/24/24 02:54 Pulse Oximetry 97 05/24/24 02:54 Oxygen Delivery Me thod Room Air 05/24/24 02:42 MDM - Arrhythmia/Palpitations Medical Decision Making At the time of my exam, vital signs have stabilized. Blood pressure is 140/80. Heart rate is in the 60s. He has no chest pain or lightheadedness or other symptoms. EKG shows mild LV but no change from prior. Of greatest concern is that he says he felt lightheaded when his Fitbit told him he had bradycardia with heart rate in the 40s. He has remained in sinus rhythm with normal heart rate while in the emergency department. I will advocate for him to continue taking his medications as prescribed until told to do otherwise by his preparation operator. We discussed that not beta-tim such as metoprolol can cause bradycardia which can become symptomatic and it may be reasonable to stop taking this and start taking something else for blood pressure if needed. He knows that he is always welcome back to emergency department if needed before outpatient follow-up. Lab Data 05/24/24 00:22 05/24/24 00:22 Laboratory Results WBC 7.05 10^3/uL (3.29-11.43) 05/24/24 00: RBC 4.87 10^6/uL (3.85-5.65) 05/24/24 00: Hgb 14.00 g/dL (11.27-16.99) 05/24/24 00: Hct 43.5 % (37-53) 05/24/24 00: MCV 89.3 fl (82-101) 05/24/24 00: MCH 28.7 pg (27-33) 05/24/24: MCHC 32.2 g/dL (30-55) 05/24/24 00: RDW 13.2 % (12.1-15.1) 05/24/24 00: Plt Count 164 10^3/cmm (157-399) 05/24/24: MPV 10.2 fL (7.4-10.4) 05/24/24 00: Neut % (Auto) 63.6 % 05/24/24 00: Lymph % (Auto) 24.4 % 05/24/24: [place] % (Auto) 9.9 % 05/24/24 00: Eos % (Auto) 1.1 % 05/24/24 00: Baso % (Auto) 0.6 % 05/24/24 00: Neut # (Auto) 4.48 10^3/uL (1.8-7.7) 05/24/24 00: Lymph # (Auto) 1.7 10^3/uL (0.8-4.8) 05/24/24 00: [place] # (Auto) 0.7 10^3/uL (0.2-0.9) 05/24/24 00: Eos # (Auto) 0.1 10^3/uL (0.0-0.8) 05/24/24 00: Baso # (Auto) 0.0 10^3/uL (0.0-0.1) 05/24/24 00: Nucleated RBC % (auto) 0 % 05/24/24: Nucleated RBCs # 0.0 /100WBC 05/24/24 00: Sodium 141 mmol/L (136-145) 05/24/24 00: Potassium 4.2 mmol/L (3.5-5.1) 05/24/24 00:22 Chloride 104 mmol/L (98-107) 05/24/24 00:22 Carbon Dioxide 27 mmol/L (22-29) 05/24/24 00:22 Anion Gap 14.2 (5-19) 05/24/24 00:22 BUN 18 mg/dL (8-23) 05/24/24 00:22 Creatinine 1.0 mg/dL (0.7-1.2) 05/24/24 00:22 GFR Calculation 76.0 mL/min (90-130) L 05/24/24 00:22 Glucose 95 mg/dL (65-115) 05/24/24 00:22 Calculated Osmolality 294 mOsm/kg (285-295) 05/24/24 00:22 Calcium 9.3 mg/dL (8.5-10.5) 05/24/24 00:22 Magnesium 2.2 mg/dL (1.7-2.3) 05/24/24 00:22 Total Bilirubin 0.3 mg/dL (0.15-1.2) 05/24/24 00:22 AST 21 U/L (0-40) 05/24/24 00:22 ALT 17 U/L (0-41) 05/24/24 00:22 Alkaline Phosphatase 90 U/L (40-130) 05/24/24 00:22 Troponin T Baseline < 6 ng/L (0-15) 05/24/24 00:22 Troponin T 120 Minute 6.00 ng/L (0-15) 05/24/24 02:08 Delta Troponin T 0.54382 ABS# (0-10) 05/24/24 02:08 Total Protein 6.8 g/dL (6.6-8.7) 05/24/24 00:22 Albumin 4.4 g/dL (3.5-5.2) 05/24/24 00:22 Globulin 2.4 g/dL (1.3-4.6) 05/24/24 00:22 No radiology studies performed this visit EKG Data EKG 1: Interpretation: Time?8?sinus bradycardia, rate of 56, mild LVH with negative Sgarbossa criteria, no T wave inversions, QTc = 393. No changes from prior studies on file. Discharge Plan Discharge Patient Disposition: Home Clinical Impression: Bradycardia, Accelerated hypertension Condition: Stable Prescriptions: No Action pantoprazole [Protonix] 40 mg tablet,delayed release (DR/EC) 40 mg PO BID Qty: 60 0RF atorvastatin 10 mg tablet 10 mg PO QPM amitriptyline 25 mg tablet 37.5 mg PO .QHS Creatine Monohydrate Tab 5 g PO DAILY Discharge Orders: Discharge ED (Routine); Ordered 05/24/24 Ordered By: Dioni Richards Referrals: Fany Morales NP [Primary Care Provider] - Discharge Diet: Usual diet Discharge Activity: Resume usual activity Patient Instructions: Bradycardia (ED) Activity Restrictions/Additional Instructions: Your EKG and blood work are all very reassuring. Blood pressure has normalized without intervention. Heart rate has normalized without intervention. There is no evidence of heart attack, electrolyte abnormality, or metabolic etiology to your transient bradycardia. Please follow-up with your preparation operator to make sure they do not want to make changes to your medication. Sometimes metoprolol dose needs to be diminished to avoid low heart rate. Also, as we discussed, transient blood pressure elevation only lasting several hours devoid of other symptoms should not cause great concern as the body is well equipped to handle a wide variety of blood pressures. If, however, blood pressure remains high for days and weeks at a time it is reasonable to talk with your primary care doctor and preparation operator about augmenting medications. At this time I do not see any need to make changes and will continue metoprolol as prescribed and only start lisinopril if directed to do so by either preparation operator or primary care. Print Language: Hebrew Coding Level of Care Code ED Curtain Cleaner for Taiwo Cooper
[2024-05-24 00:37] LABS: Basophils % 0.6 %; Eosinophils # 0.1 10^3/uL (0.0-0.8); Eosinophils % 1.1 %; Hematocrit 43.5 % (37-53); Lymphocytes # 1.7 10^3/uL (0.8-4.8); Lymphocytes % 24.4 %; Mean Corpuscular HGB Conc 32.2 g/dL (30-55); Mean Corpuscular Hemoglobin 28.7 pg (27-33); Mean Corpuscular Volume 89.3 fl (82-101); Mean Platelet Volume 10.2 fL (7.4-10.4); Monocytes # 0.7 10^3/uL (0.2-0.9); Monocytes % 9.9 %; Neutrophils # 4.48 10^3/uL (1.8-7.7); Neutrophils % 63.6 %; Nucleated Red Blood Cells % 0 %; Platelet Count 164 10^3/cmm (157-399); Red Blood Count 4.87 10^6/uL (3.85-5.65); Red Cell Distribution Width 13.2 % (12.1-15.1); White Blood Count 7.05 10^3/uL (3.29-11.43)
[2024-05-24 00:45] LABS: Troponin(5th) Baseline < 6 ng/L (0-15)
[2024-05-24 00:52] LABS: Alanine Aminotransferase 17 U/L (0-41); Albumin Level 4.4 g/dL (3.5-5.2); Alkaline Phosphatase 90 U/L (40-130); Anion Gap 14.2 (5-19); Aspartate Amino Transferase 21 U/L (0-40); Blood Urea Nitrogen 18 mg/dL (8-23); Calcium 9.3 mg/dL (8.5-10.5); Carbon Dioxide 27 mmol/L (22-29); Chloride 104 mmol/L (98-107); Creatinine Clr Calc Pharmacy 89.8221; Globulin 2.4 g/dL (1.3-4.6); Glucose 95 mg/dL (65-115); Magnesium 2.2 mg/dL (1.7-2.3); Osmolality Calculated 294 mOsm/kg (285-295); Potassium 4.2 mmol/L (3.5-5.1); Sodium 141 mmol/L (136-145); Total Bilirubin 0.3 mg/dL (0.15-1.2); Total Protein 6.8 g/dL (6.6-8.7)
[2024-05-24 01:23] VITALS: BP 122/73; PULSE 55; RESP 18; O2SAT 96
[2024-05-24 02:33] LABS: Troponin 5 2HR Delta 0.00001 ABS# (0-10)
[2024-05-24 02:42] VITALS: BP 120/71; PULSE 57; RESP 16; O2SAT 96
[2024-05-24 02:54] VITALS: BP 120/71; PULSE 53; RESP 16; O2SAT 97
== END 2024-05-24 02:59 | disposition home or self-care (01) ==
PROVIDERS: Emergency Provider Student in an Organized Health Care Education/Training Program; PCP Nurse Practitioner Family
DX: R00.1 Bradycardia, unspecified (principal); I10 Essential (primary) hypertension
CPT/HCPCS: 36415; 80053; 83735; 84484; 85025; 93005; 99284

== ENCOUNTER 2024-11-15 10:01 | Emergency (ER) | payer BC, MEDICAID, SELFPAY ==
[2024-11-15 10:09] VITALS: BP 133/79; PULSE 61; RESP 16; TEMP 36.8; O2SAT 96; BMI 34.1
--- NOTE | 2024-11-15 10:29 | XR_ITS ---
WS: [id number] Portable AP upright chest, 11/15/2024 Clinical Data: sob Comparison: None. Findings: No nodules, masses or effusions are seen. The heart is normal. The pulmonary vascularity is not increased. No pneumonia or pneumothorax is seen. The diaphragms are flattened. The aortic arch shows calcification and mild tortuosity. XR/XR chest 1V portable [id number] Impression: Atherosclerosis and hyperinflation.
[2024-11-15] MEDS: lidocaine 2% viscous 15 ML, aluminum-mag hydrox-simethicon 30 ML, sucralfate oral liq 1 GM PO (10:37)
--- NOTE | 2024-11-15 11:26 | W.ED.BURNSMK ---
HPI - Burn/Smoke Inhalation General: Chief complaint: Burn/Smoke Inhalation Stated complaint: swallowed hot food, trouble swallowing, sob Time Seen by Provider: 11/15/24 10:23 Source: patient Mode of arrival: ambulatory Limitations: no limitations History of Present Illness: 59-year-old male states that he was eating stew last night and had a very hot piece of potato that he swallowed immediately. He states ever since then he has been having pain in his esophagus along with some slight difficulty swallowing. He states he has been able to drink liquids and swallow some pills but it is painful. He denies any vomiting denies any diarrhea. Related Data Home Medications ?Medication ?Instructions ?Recorded ?Confirmed amitriptyline 25 mg tablet 37.5 mg PO .QHS 11/22/23 11/15/24 atorvastatin 10 mg tablet 10 mg PO QPM 11/22/23 11/15/24 creatine monohydrate 5 ea PO QPM 11/15/24 11/15/24 metoprolol succinate 25 mg 25 mg PO QAM 11/15/24 11/15/24 tablet,extended release 24 hr Allergies Allergy/AdvReac Type Severity Reaction Status Date / Time azithromycin Allergy ALGY-Redness Verified 11/15/24 10:09 of Skin Review of Systems Resp: Reports: dyspnea [facility] ED PFSH: Medical History SVT (supraventricular tachycardia) Social History Smoking and tobacco/nicotine status: never used tobacco/nicotine Alcohol intake: never Substance/Drug Use: never Lives independently: Yes Household members: spouse Marital status: Physical Exam Const: COMMON NORMALS: no acute distress, patient oriented x3 and healthy appearing HENMT: COMMON NORMALS: normocephalic and atraumatic HEAD & SCALP: normocephalic and atraumatic THROAT: posterior oropharynx normal Neck/C-Spine: COMMON NORMALS: full ROM and supple Chest: COMMONS NORMALS: normal inspection of the chest Resp: COMMON NORMALS: normal respiratory effort, No retractions, No use of accessory muscles and clear to auscultation bilaterally AUSCULTATION: clear to auscultation bilaterally Cardio: COMMON NORMALS: regular rate, regular rhythm and No murmurs present (Cardio) RATE: regular rate RHYTHM: regular rhythm GI: COMMON NORMALS: Normal to inspection, nondistended, normoactive bowel sounds present, Soft to palpation, non-tender and no masses PALPATION: Yes Soft to palpation Extremity: COMMON NORMALS: normal to inspection and full ROM Neuro: COMMON NORMALS: patient oriented x3, moves all extremities and no focal motor deficits Psych: COMMON NORMALS: mental status grossly normal, Normal thought process present and cooperative THOUGHT PROCESS: Normal thought process present Skin: COMMON NORMALS: no rashes or lesions noted and no wounds GENERAL SKIN EXAM: no rashes or lesions noted Course Vital Signs: Vital signs: Vital Signs Temperature 98.3 F 11/15/24 10:09 Pulse Rate 55 L 11/15/24 11:43 Respiratory Rate 18 11/15/24 11:43 Blood Pressure 118/74 11/15/24 11:43 Pulse Oximetry 95 11/15/24 11:43 Oxygen Delivery Me thod Room Air 11/15/24 10:09 MDM - Burn/Smoke Inhalation Medical Decision Making Patient presents here with some painful swallowing is likely from slight esophageal burn from eating a hot potato he is able to tolerate liquid and p.o. here. After GI cocktail he felt much improved. He has no signs of abscess no signs of esophageal perforation. Chest x-ray here was interpreted by me and was normal. I spoke to patient I informed him he needs to do a soft liquid diet over the next 2 days he needs to follow-up with his PCP in 3 to 4 days and return to the ER if worsening he understands and agrees to plan Medical Records I reviewed the patient's medical records. Lab Data Radiology Impressions Chest X-Ray 11/15/24 10:29 Impression: Atherosclerosis and hyperinflation. All radiology interpretation(s) finalized by discharge Discharge Plan Discharge Patient Disposition: Home Clinical Impression: Esophageal pain Condition: Stable Prescriptions: No Action atorvastatin 10 mg tablet 10 mg PO QPM amitriptyline 25 mg tablet 37.5 mg PO .QHS metoprolol succinate 25 mg tablet extended release 24 hr 25 mg PO QAM creatine monohydrate Powder 5 ea PO QPM Discharge Orders: Discharge ED (Routine); Ordered 11/15/24 Ordered By: Jian Cool Referrals: Fany Morales NP [Primary Care Provider, Unknown] - 4-7 days Discharge Diet: Advance as tolerated Discharge Activity: Resume usual activity Patient Instructions: Dysphagia (ED) Print Language: Turkish Coding Level of Care Code ED Qa Reviewer for Taiwo Cooper
[2024-11-15 11:43] VITALS: BP 118/74; PULSE 55; RESP 18; O2SAT 95
== END 2024-11-15 11:47 | disposition home or self-care (01) ==
PROVIDERS: Emergency Provider Emergency Medicine; PCP Nurse Practitioner Family
DX: K22.9 Disease of esophagus, unspecified (principal)
CPT/HCPCS: 71045; 99283; J9999